=== PATIENT | male | born 1990 | race African-American/Black ===

== ENCOUNTER 2017-02-16 09:47 | Emergency (ER) | payer SELFPAY ==
[2017-02-16] MEDS ORDERED: IBUPROFEN 800 MG TABLET PO ONE (10:35)
--- NOTE | 2017-02-16 10:49 | ER Document Report ---
HPI - HPI Patient complains to provider of: sore throat Onset: Yesterday Onset/Duration: Gradual Quality of pain: Achy Pain Level: 2 Context: Patient presents complaining of sore throat that started yesterday. Patient does report vomiting yesterday but no vomiting today. Patient does report recent sick contacts at work. Patient denies any fever. Patient called out of work and needs a note for his job. Associated Symptoms: Sore throat. denies: Fever Exacerbated by: Denies Relieved by: Denies Similar symptoms previously: Yes Recently seen / treated by doctor: No - ROS ROS below otherwise negative: Yes Systems Reviewed and Negative: Yes All other systems reviewed and negative - CONSTITUTIONAL Constitutional: DENIES: Fever - EENT EENT: REPORTS: Sore Throat - RESPIRATORY Respiratory: DENIES: Coughing - GASTROINTESTINAL Gastrointestinal: REPORTS: Patient vomiting - Yesterday, none today - DERM Skin Color: Normal Skin Problems: None Past Medical History - General Information source: Patient - Social History Smoking Status: Current Every Day Smoker Frequency of alcohol use: None Drug Abuse: None Occupation: Foodservice Family History: Reviewed & Not Pertinent Patient has suicidal ideation: No Patient has homicidal ideation: No - Medical History Medical History: Negative Renal/ Medical History: Denies: Hx Peritoneal Dialysis Surgical Hx: Negative - Immunizations Hx Diphtheria, Pertussis, Tetanus Vaccination: Yes Vertical Provider Document - CONSTITUTIONAL Agree With Documented VS: Yes Exam Limitations: No Limitations General Appearance: WD/WN, No Apparent Distress - INFECTION CONTROL TRAVEL OUTSIDE OF THE [place] IN LAST 30 DAYS: No - HEENT HEENT: Atraumatic, Normocephalic, Pharyngeal Tenderness, Pharyngeal Erythema. negative: Pharyngeal Exudate - NECK Neck: Normal Inspection, Supple. negative: Lymphadenopathy-Left, Lymphadenopathy-Right - RESPIRATORY Respiratory: Breath Sounds Normal, No Respiratory Distress, Chest Non-Tender O2 Sat by Pulse Oximetry: 96 - CARDIOVASCULAR Cardiovascular: Regular Rate, Regular Rhythm, No Murmur - BACK Back: Normal Inspection - MUSCULOSKELETAL/EXTREMETIES Musculoskeletal/Extremeties: MAEW - NEURO Level of Consciousness: Awake, Alert, Appropriate Motor/Sensory: No Motor Deficit - DERM Integumentary: Warm, Dry, No Rash Course - Vital Signs Vital signs: Temp Pulse Resp BP Pulse Ox 98.8 F 79 18 116/57 L 96 02/16/17 10:08 02/16/17 10:08 02/16/17 10:08 02/16/17 10:08 02/16/17 10:08 Discharge - Discharge Clinical Impression: Sore throat Condition: Stable Disposition: HOME, SELF-CARE Instructions: Sore Throat ([facility]) Additional Instructions: Return immediately for any new or worsening symptoms Followup with your primary care provider, call tomorrow to make a followup appointment Forms: Return to Work Referrals: [facility] [Provider Group] - Follow up as needed
[2017-02-16 11:45] VITALS: BP 114/54
== END 2017-02-16 11:45 | disposition home or self-care (01) ==
LOC: ER 09:47
DX: J02.9 Acute pharyngitis, unspecified (principal); F17.200 Nicotine dependence, unspecified, uncomplicated
CPT/HCPCS: 87070; 87880; 99283

== ENCOUNTER 2017-03-13 21:05 | Emergency (ER) | payer SELFPAY ==
[2017-03-13] MEDS ORDERED: VALACYCLOVIR HCL 500 MG TABLET PO ONE (22:01)
--- NOTE | 2017-03-13 22:03 | ER Document Report ---
HPI - HPI Patient complains to provider of: Cold sore Onset: Yesterday Onset/Duration: Gradual Quality of pain: Burning Pain Level: 1 Context: Patient complains of cold sores that started to develop yesterday. Patient states that it has been several years since his last episode. Patient denies any other complaints. Patient is requesting a note for his employer. Associated Symptoms: Other - Cold sores Exacerbated by: Denies Relieved by: Denies Similar symptoms previously: Yes Recently seen / treated by doctor: No - ROS ROS below otherwise negative: Yes Systems Reviewed and Negative: Yes All other systems reviewed and negative - CONSTITUTIONAL Constitutional: DENIES: Fever - EENT Notes: Skin lesion to the lips - RESPIRATORY Respiratory: DENIES: Trouble Breathing, Coughing - GASTROINTESTINAL Gastrointestinal: DENIES: Nausea, Patient vomiting - DERM Skin Problems: Blister Past Medical History - General Information source: Patient - Social History Smoking Status: Never Smoker Occupation: [employer] Lives with: Family Family History: Reviewed & Not Pertinent - Medical History Medical History: Negative Renal/ Medical History: Denies: Hx Peritoneal Dialysis Surgical Hx: Negative - Immunizations Hx Diphtheria, Pertussis, Tetanus Vaccination: Yes Vertical Provider Document - CONSTITUTIONAL Agree With Documented VS: Yes Exam Limitations: No Limitations General Appearance: WD/WN, No Apparent Distress - INFECTION CONTROL TRAVEL OUTSIDE OF THE [place] IN LAST 30 DAYS: No - HEENT HEENT: Atraumatic, Normocephalic Notes: Vesicular lesions noted to lips - NECK Neck: Normal Inspection, Supple - RESPIRATORY Respiratory: Breath Sounds Normal, No Respiratory Distress O2 Sat by Pulse Oximetry: 97 - CARDIOVASCULAR Cardiovascular: Regular Rate, Regular Rhythm - MUSCULOSKELETAL/EXTREMETIES Musculoskeletal/Extremeties: MAEW - NEURO Level of Consciousness: Awake, Alert, Appropriate Motor/Sensory: No Motor Deficit - DERM Integumentary: Warm, Dry, Rash - Vesicular lesion lips concerning for herpes labialis Course - Vital Signs Vital signs: Temp Pulse Resp BP Pulse Ox 98 F 66 16 121/60 97 03/13/17 21:12 03/13/17 21:12 03/13/17 21:12 03/13/17 21:12 03/13/17 21:12 Discharge - Discharge Clinical Impression: Herpes labialis Condition: Stable Disposition: HOME, SELF-CARE Instructions: Herpes Simplex ([facility]) Additional Instructions: Return immediately for any new or worsening symptoms Followup with your primary care provider, call tomorrow to make a followup appointment Take 1 additional dose of the Valtrex antiviral medication at 10:00 in the morning to complete your therapy Prescriptions: Valacyclovir HCl [Valacyclovir] 2,000 mg PO ONCE #2 tablet Forms: Return to Work Referrals: [facility] [Provider Group] - Follow up as needed
[2017-03-13 22:21] VITALS: BP 119/62
== END 2017-03-13 22:21 | disposition home or self-care (01) ==
LOC: ER 21:05
DX: B00.1 Herpesviral vesicular dermatitis (principal)
CPT/HCPCS: 99283

== ENCOUNTER 2017-03-14 18:21 | Emergency (ER) | payer SELFPAY ==
[2017-03-14 18:28] VITALS: BP 122/66
[2017-03-14] MEDS ORDERED: VALACYCLOVIR HCL 500 MG TABLET PO ONE (19:57)
--- NOTE | 2017-03-14 19:59 | ER Document Report ---
HPI - HPI Patient complains to provider of: Work note Onset: Other - 2 days Onset/Duration: Persistent Quality of pain: No pain Pain Level: 0 Context: Patient presents complaining of cold sores to his lip. Patient is concerned about cosmetic appearance of his lip and needs a note for his job. She was here yesterday and given a prescription for Valtrex although did not get the prescription filled. Patient states the skin lesions are starting to improve but he needs an additional day off of work. Associated Symptoms: Other - Skin lesions Exacerbated by: Denies Relieved by: Denies Similar symptoms previously: No Recently seen / treated by doctor: Yes - ROS ROS below otherwise negative: Yes Systems Reviewed and Negative: Yes All other systems reviewed and negative - DERM Skin Problems: Rash Past Medical History - General Information source: Patient - Social History Smoking Status: Never Smoker Frequency of alcohol use: None Drug Abuse: None Occupation: [employer] Lives with: Family Family History: Reviewed & Not Pertinent - Medical History Medical History: Negative Renal/ Medical History: Denies: Hx Peritoneal Dialysis Surgical Hx: Negative - Immunizations Hx Diphtheria, Pertussis, Tetanus Vaccination: Yes Vertical Provider Document - CONSTITUTIONAL Agree With Documented VS: Yes Exam Limitations: No Limitations General Appearance: WD/WN, No Apparent Distress - INFECTION CONTROL TRAVEL OUTSIDE OF THE [place] IN LAST 30 DAYS: No - HEENT HEENT: Atraumatic, Normocephalic Notes: Mild erythema to lips at site where patient previously had vesicular lesions - NECK Neck: Normal Inspection, Supple - RESPIRATORY Respiratory: No Respiratory Distress O2 Sat by Pulse Oximetry: 97 - MUSCULOSKELETAL/EXTREMETIES Musculoskeletal/Extremeties: BART GODFREY - NEURO Level of Consciousness: Awake, Alert, Appropriate Motor/Sensory: No Motor Deficit - DERM Integumentary: Warm, Dry, Rash - Mild erythema to the lips at site where patient had vesicular lesions yesterday. Course - Re-evaluation Re-evalutation: 03/14/17 19:58 Patient states that he works tomorrow and he needs a note for his job tomorrow. Consulted with Dr. Monge as patient is here for return visit from yesterday. Advises giving patient a note only to Thursday but patient has to follow up with the primary doctor for a recheck if patient needs additional time away from work due to his cold sores. - Vital Signs Vital signs: Temp Pulse Resp BP Pulse Ox 98.2 F 81 16 122/66 97 03/14/17 18:28 03/14/17 18:28 03/14/17 18:28 03/14/17 18:28 03/14/17 18:28 Discharge - Discharge Clinical Impression: Herpes labialis Condition: Stable Disposition: HOME, SELF-CARE Instructions: Acetaminophen, Herpes Simplex ([facility]) Forms: Return to Work Referrals: [facility] [Provider Group] - 03/16/17
== END 2017-03-14 20:14 | disposition home or self-care (01) ==
LOC: ER 18:21
DX: B00.1 Herpesviral vesicular dermatitis (principal)
CPT/HCPCS: 99281

== ENCOUNTER 2017-07-25 13:37 | Emergency (ER) | payer SELFPAY ==
[2017-07-25 13:49] VITALS: BP 120/69
--- NOTE | 2017-07-25 13:54 | ER Document Report ---
HPI - HPI Patient complains to provider of: Stress anxiety Onset: Other - Several weeks Pain Level: Denies Context: 26-year-old male has been under a lot of stress and anxiety for the past several weeks. He has a new job [employer] and he is from his girlfriend. The symptoms he is experiencing when he becomes anxious is sweating palpitations crying. He denies depression. No history of psychiatric diagnosis. He has no symptoms today. He had to leave work because of crying yesterday. Wants to make sure it is not his heart. Past Medical History - General Information source: Patient - Social History Smoking Status: Current Every Day Smoker Frequency of alcohol use: None Drug Abuse: Marijuana Occupation: [employer] Lives with: Spouse/Significant other Family History: Reviewed & Not Pertinent - Medical History Medical History: Negative Renal/ Medical History: Denies: Hx Peritoneal Dialysis Surgical Hx: Negative - Immunizations Hx Diphtheria, Pertussis, Tetanus Vaccination: Yes Vertical Provider Document - CONSTITUTIONAL Agree With Documented VS: Yes Exam Limitations: No Limitations - INFECTION CONTROL TRAVEL OUTSIDE OF THE [place] IN LAST 30 DAYS: No - HEENT HEENT: Normal ENT Exam, Normocephalic. negative: Conjuctival Injection - NECK Neck: Supple, Thyroid Normal. negative: Lymphadenopathy-Left, Lymphadenopathy- Right - RESPIRATORY Respiratory: Breath Sounds Normal, No Respiratory Distress - CARDIOVASCULAR Cardiovascular: Regular Rate, Regular Rhythm - GI/ABDOMEN Gastrointestinal: Abdomen Soft, Abdomen Non-Tender, No Organomegaly - NEURO Level of Consciousness: Awake, Alert - DERM Integumentary: Warm, Dry, No Rash Course - Vital Signs Vital signs: Temp Pulse Resp BP Pulse Ox 98.4 F 64 18 120/69 94 07/25/17 13:48 07/25/17 13:48 07/25/17 13:48 07/25/17 13:48 07/25/17 13:48 Discharge - Discharge Clinical Impression: Anxiety, Stress at work Condition: Good Disposition: ADMITTED INPATIENT Instructions: Anxiety ([facility]) Additional Instructions: seek counseling-list given to you to er if can't control and calm yourself like you have been doing. Forms: Return to Work
== END 2017-07-25 14:21 | disposition home or self-care (01) ==
LOC: ER 13:37
DX: F41.9 Anxiety disorder, unspecified (principal); F43.9 Reaction to severe stress, unspecified; F17.200 Nicotine dependence, unspecified, uncomplicated
CPT/HCPCS: 99283

== ENCOUNTER 2019-03-01 16:00 | Emergency (ER) | payer SELFPAY ==
--- NOTE | 2019-03-01 16:19 | ER Document Report ---
ED Medical Screen (RME) - General Chief Complaint: Skin Problem Stated Complaint: AREA OF SKIN ON BACK IS UNCOMFORTABLE Time Seen by Provider: 03/01/19 16:15 Mode of Arrival: Ambulatory Information source: Patient Notes: 28-year-old male presented to ED for complaint of stiffness to his left lower back. He states he does have a mole to the area. He states the moles been there both for about 4 years and that his stiffness is been there for about a year. He states his uncle just passed and they did not wet floor and so his mother insisted that he come to the emergency room and get this area checked out. He is alert oriented respirations regular nonlabored speaking in full sentences. He smokes 1 to 2 cigarettes a day does not drink and does smoke marijuana. TRAVEL OUTSIDE OF THE [place] IN LAST 30 DAYS: No - Related Data Allergies/Adverse Reactions: No Known Allergies Allergy (Verified 03/01/19 16:11) Past Medical History - Social History Chew tobacco use (# tins/day): No Frequency of alcohol use: None Drug Abuse: Marijuana Renal/ Medical History: Denies: Hx Peritoneal Dialysis - Immunizations Hx Diphtheria, Pertussis, Tetanus Vaccination: Yes
--- NOTE | 2019-03-01 17:47 | ER Document Report ---
HPI - HPI Time Seen by Provider: 03/01/19 16:15 Pain Level: Denies Context: Very pleasant 28-year-old healthy male presents to the emergency department with chief complaint of a mole on his left lower back. Patient states that the mole has been there for about 4 years and his mother compelled him to get seen due to a recent in the family. Patient does not have a primary care provider but recently obtained insurance and is going to obtain one. Patient denies any surrounding erythema, denies any systemic rash, denies fevers or chills. No other complaints - REPRODUCTIVE Reproductive: DENIES: : Past Medical History - General Information source: Patient - Social History Smoking Status: Current Every Day Smoker Chew tobacco use (# tins/day): No Frequency of alcohol use: None Drug Abuse: Marijuana Family History: Reviewed & Not Pertinent Patient has suicidal ideation: No Patient has homicidal ideation: No Renal/ Medical History: Denies: Hx Peritoneal Dialysis - Immunizations Hx Diphtheria, Pertussis, Tetanus Vaccination: Yes Vertical Provider Document - CONSTITUTIONAL Notes: PHYSICAL EXAMINATION: Reviewed vital signs and charting by RN GENERAL: Alert, interacts well. No acute distress. HEAD: Normocephalic, atraumatic. EYES: Pupils equal and round. Extraocular movements intact. ENT: Oral mucosa moist, tongue midline. NECK: Full range of motion. Trachea midline. LUNGS: Clear to auscultation bilaterally, no wheezes, rales, or rhonchi. No respiratory distress. HEART: Regular rate and rhythm. No murmur ABDOMEN: soft, non-tender. No distention. Bowel sounds present EXTREMITIES: Moves all 4 extremities spontaneously. No edema, No cyanosis. PSYCH: Normal affect, normal mood. SKIN: Warm, dry, normal turgor. Small 2 mm circumferential papular lesion with central hypo-pigmentation that is firm. No area of fluctuance palpated. - INFECTION CONTROL TRAVEL OUTSIDE OF THE [place] IN LAST 30 DAYS: No Course - Re-evaluation Re-evalutation: 03/01/19 17:46 Well-appearing in no acute distress, vital signs noted. Lesion is papular and firm but without the ability to perform a biopsy unclear what the pathology is. I explained to patient that because it is been going on for 4 years and it is very slow-growing that is overall reassuring. I explained to him that he will need a biopsy performed to assess the mole. Patient agrees with plan and stable for discharge. Discharge - Discharge Clinical Impression: Skin lesion of back Condition: Good Disposition: HOME, SELF-CARE Additional Instructions: You were seen for a lesion on your back. Without doing a biopsy it is difficult to say what it is. Like we discussed, you can try to do on it 5 to 10 minutes at a time to see if that helps to soften up the skin. If not it might be a mole but again dermatology negative biopsy we cannot confirm. Because it is a slow- growing lesion over several years it is reassuring that is probably nothing serious. Once you obtain your insurance you can call around to local doctor offices to see if they excepted and set up a primary care provider. Please return to the emergency department if you have any other concerns.
[2019-03-01 17:51] VITALS: BP 125/74
== END 2019-03-01 17:50 | disposition home or self-care (01) ==
LOC: ER 16:00
DX: D22.5 Melanocytic nevi of trunk (principal); F17.200 Nicotine dependence, unspecified, uncomplicated
CPT/HCPCS: 99283